=== PATIENT | female | born 2000 | race Caucasian/White ===

== ENCOUNTER → 2018-03-29 16:11 | Outpatient (CLI) | payer OTHER, MEDICAID, SELFPAY | PROVIDERS: PCP Family Medicine; Visit Provider Family Medicine | DX: Z30.09 Encounter for other general counseling and advice on contraception (principal) ==

== ENCOUNTER → 2018-07-26 15:19 | Outpatient (CLI) | payer OTHER, MEDICAID, SELFPAY ==
[2018-07-26 17:16] LABS: TSH w/ Reflex to FT4 6.09 uIU/mL (0.47-4.68)
[2018-07-26 17:41] LABS: Free T4, Direct Thyroxine 0.85 ng/dL (0.78-2.19)
== END ==
PROVIDERS: PCP Family Medicine; Visit Provider Family Medicine
DX: R79.89 Other specified abnormal findings of blood chemistry (principal)
CPT/HCPCS: 36415; 84439; 84443

== ENCOUNTER 2018-11-04 07:38 | Day surgery (SDC) | payer OTHER, MEDICAID, SELFPAY ==
[2018-11-02 11:47] VITALS: BMI 31.1
[2018-11-04] VITALS (10 sets, daily range): BP systolic 86–122; BP diastolic 57–77; PULSE 69–100; RESP 10–15; TEMP 36.7–36.8; O2SAT 91–100; BMI 30.3
[2018-11-04] MEDS: LACTATED RINGERS 1,000 ML 42 ML IV (08:25)
--- NOTE | 2018-11-04 08:57 | PM.PREOP ---
Pre-operative Note Interval Note History & Physical reviewed/Exam performed by Physician: Yes Changes to H&P: No
--- NOTE | 2018-11-04 08:58 | PM.OP.1 ---
Operative Date/Time/Diagnoses Date of procedure: 11/04/18 Time of procedure: 08:58 Pre-op diagnosis: Ingrown right great toenail Post-op diagnosis: same Procedure & Clinicians Procedure: Right great toe medial and lateral partial matrixectomy Same procedure as scheduled: Yes Indications: Painful recurrent ingrown right great toenail. Surgeon: Nabila Rodriguez Click Yes if Unassisted: Yes Anesthesia Type: General Operative Notes Closure Type: not applicable Specimen(s): none sent Estimated Blood Loss (mL): 5 Blood products transfused: none Procedure in detail: Patient was brought to the operating room and placed on the operative table in supine position. Following induction of general anesthesia, local anesthesia was delivered to the right great toe. The foot was prepped and draped in the usual aseptic manner. After check of anesthesia, [place] drain was placed about the right hallux. The hallux nail lateral and medial borders were removed gently. The surrounding skin was protected with triple antibiotic ointment and a series of 4 applications of phenol at 30 sec each were placed in each of the removed areas. Following each the areas were curetted and after the last each was rinsed with alcohol. The annelise tourniquet was removed, a prompt hyperemic response was seen to the toe. The area was cleaned and dressed with triple antibiotic ointment, 4x4s, and gently placed coban. Complications: none Condition: stable Disposition: PACU Plan for aftercare: Following a period of postoperative monitoring, the patient will be discharged home on written and oral postoperative instructions. Tomorrow morning will be her 1st dressing soaked where her bandage will be removed and 5 to follow the instructions as delineated in her postoperative care packet.
[2018-11-04] MEDS: CEFAZOLIN 2 GM/100 ML FROZ.PIGGY IV (09:26)
--- NOTE | 2018-11-04 09:39 | SUR.OPER ---
Supine on padded OR bed, head on pillow, arms secured on padded arm boards at <90 degrees abduction, legs uncrossed, safety belt at thigh, tape over blanket over lower leg, bump under operative leg.
[2018-11-04] MEDS: BUPIVACAINE 0.5% (PF) VIAL 30 ML INJ (10:04)
[2018-11-04] MEDS: NEOMYCIN/POLYMYXIN/BACITRA UD OINT 1 EACH TOP (10:05)
[2018-11-04] MEDS: LIDOCAINE 2% INJ MDV 20 ML INJ (10:05)
[2018-11-04] MEDS: MEPERIDINE 50 MG/ML 25 MG IV (10:13)
--- NOTE | 2018-11-04 10:25 | SUR.PHASEI ---
Pt arrived to PACU with oral airway, chin lift needed for short period, air way out and pt remained on room air, demerol given for shakes after bear hugger ineffective for getting rid of them. Shakes now gone pt awake. with no pain, and eating ice chips. Waiting for 20 min after iv narcotic for transfer.
== END 2018-11-04 11:00 | disposition home or self-care (01) ==
PROVIDERS: PCP Family Medicine; Visit Provider Podiatrist
PROC: 0HTRXZZ Resection of Toe Nail, External Approach (ICD-10-PCS; CPT 11750; principal; 2018-11-04 09:15)
DX: L60.0 Ingrowing nail (principal)
CPT/HCPCS: 11750; J0690; J1100; J2175; J2250; J2405; J2704; J3010

== ENCOUNTER → 2024-05-09 13:43 | Outpatient (CLI) | payer OTHER, SELFPAY ==
--- NOTE | 2024-05-16 13:47 | DIET.OUTPTC ---
Dietary Outpatient Consultation Note Consultation Date: 05/09/2024 Assessment: 24 y F referred to dietitian for PCOS. Pt goes by Shanice. Shanice is wanting to learn more about nutrition r/t PCOS, appropriate macronutrient distribution at meals, and plant-based eating. Is vegan. Has been vegan or vegetarian for many years. Last 1-2 yrs has been vegan, before then was vegetarian for 5 yrs. Notes she has had trouble including enough protein in diet and that meals are volume dense. Wants to start incorporating in daytime meals, but notes she feels sleepy/tired after meals. Has made [place]-based or pea soups and pairs with slices of sourdough bread in the past. Follows recipes by online RD blogger Ellie Littlejohn. 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 Is taking metformin 1,000 mg XR daily. Denies N/V/D/C. Ht: 173 cm Wt: 93.9 kg BMI: 31.37 UBW: - Nutrition Diagnosis: Nutrition related knowledge deficit r/t limited formal nutrition educ on vegan diet aeb assessment Interventions: Discussed the following topics: -Small freq nutrient dense meals/snacks -Consistent CHO, CHO servings/portion sizes and plate method -Vegan protein sources -Macro distributions Goals: implementing small meal (lfeqorz-ivzzo-7-3 CHO serving) at lunch + snack Plan to work towards consistent small freq meals Monitoring/Evaluations: f/u in 6 wks Electronically Signed by: Laurie Peacock 05/16/24 13:47 Clinical Dietitian [address] [id number]
== END ==
LOC: DIET 13:43
PROVIDERS: PCP Registered Nurse; Referring Provider Registered Nurse
DX: E28.2 Polycystic ovarian syndrome (principal); Z71.3 Dietary counseling and surveillance; Z68.31 Body mass index [BMI] 31.0-31.9, adult; Z78.9 Other specified health status
CPT/HCPCS: 97802

== ENCOUNTER → 2024-06-20 13:39 | Outpatient (CLI) | payer OTHER, SELFPAY ==
--- NOTE | 2024-06-22 08:14 | DIET.OUTPTC ---
Dietary Outpatient Consultation Note Consultation Date: 06/20/2024 Assessment: Nutrition f/u for 24 y F referred to dietitian for PCOS. Pt goes by Shanice. Has been eating lunch consistently, but still feels her lunch sources are mostly carbs and fiber. Has been prescribed an increase in her metformin r/t her A1c coming back as 5.7% in most recent labs. Now [id number] mg. Had tried to have increased dose, but had GI distress. This led to a decrease in lunch consumption this past week. She just had the metformin with a yam. Diet recall: B: coffees/teas L: vegetable soup OR mihir and hummus D: tofu, veg, quinoa or potatoes night snacks -varies, sometimes family members buy sweets Denies N/V/D/C. Ht: 173 cm Wt: 93.9 kg BMI: 31.37 UBW: - Nutrition Diagnosis: Nutrition related knowledge deficit r/t limited formal nutrition educ on vegan diet aeb assessment Interventions: Discussed the following topics: -Reviewed protein options she was considering adding to lunches -Reviewed appropriate amounts of CHO to have a meals and snacks for BG control, label reading and hand/object portion sizes to compare to -Provided feedback on online blogger she reads/ gets recipes on - rolly longoria Goals: 30-45 g CHO at lunch w/ tofu or beans included for vegan protein Plan to work towards consistent small freq meals Monitoring/Evaluations: f/u in 6 wks Electronically Signed by: Laurie Peacock 06/22/24 08:14 Clinical Dietitian [address] [id number]
== END ==
PROVIDERS: PCP Registered Nurse; Referring Provider Registered Nurse
DX: E28.2 Polycystic ovarian syndrome (principal); Z71.3 Dietary counseling and surveillance; Z68.31 Body mass index [BMI] 31.0-31.9, adult
CPT/HCPCS: 97803

== ENCOUNTER → 2024-10-19 09:29 | Outpatient (CLI) | payer OTHER, SELFPAY ==
--- NOTE | 2024-10-19 09:31 | DI.US.S_ITS ---
PROCEDURE: US PELVIC COMPLETE INDICATIONS: Fullness of female pelvic organs TECHNIQUE: Real-time scanning was performed of the pelvic organs, with image documentation. Additional endovaginal scanning was necessary due to incomplete visualization of the adnexal and endometrial structures by transabdominal scanning. COMPARISON: None. FINDINGS: Uterus: 6.9 x 4.6 x 3.3 cm. Anteverted positioning. Endometrium measures 3 mm. Nabothian cysts are seen. The largest complicated cyst measures 0.9 cm. Ovaries: Nonenlarged bilaterally, with spectral flows identified. Other: No pathologic free abdominal or pelvic fluid. IMPRESSION: No acute or significant sonographic abnormality in the pelvis. Dictated by: Daljit Bess M.D. on 10/19/2024 at 10:09 Approved by: Daljit Bess M.D. on 10/19/2024 at 10:10
== END ==
PROVIDERS: PCP Family Medicine; Referring Provider Family Medicine; Visit Provider Family Medicine
DX: R19.00 Intra-abdominal and pelvic swelling, mass and lump, unspecified site (principal); N88.8 Other specified noninflammatory disorders of cervix uteri
CPT/HCPCS: 76830; 76856; 93975

== ENCOUNTER → 2024-12-22 11:12 | Outpatient (CLI) | payer OTHER, SELFPAY ==
--- NOTE | 2024-12-22 11:16 | DI.RAD.S_ITS ---
PROCEDURE: XR THORACIC SPINE 3V INDICATIONS: CHRONIC MIDLINE BACK PAIN TECHNIQUE: 3 views of the thoracic spine were acquired. COMPARISON: None. FINDINGS: Bones: No fractures or dislocations. No suspicious bony lesions. 12 pairs of ribs are noted, and appear intact where visualized. Soft tissues: No paravertebral stripe thickening. IMPRESSION: No acute bony abnormality. Dictated by: Mark Steiner M.D. on 12/22/2024 at 14:47 Approved by: Mark Steiner M.D. on 12/22/2024 at 14:47
== END ==
PROVIDERS: PCP Family Medicine; Referring Provider Family Medicine; Visit Provider Family Medicine
DX: M54.6 Pain in thoracic spine (principal); G89.29 Other chronic pain
CPT/HCPCS: 72072

== ENCOUNTER → 2025-03-13 09:27 | Outpatient (CLI) | payer OTHER, SELFPAY ==
--- NOTE | 2025-03-13 09:30 | DI.RAD.S_ITS ---
PROCEDURE: XR FINGER RT MIN 2V INDICATIONS: FINGURE INJURY TECHNIQUE: AP hand, 2 views of the right 4th finger (s) acquired. COMPARISON: None. FINDINGS: Bones: Mildly displaced oblique fracture through the dorsal base of the right 4th distal phalanx appreciated. Fractures intra-articular Joints: The joint spaces are normal in width and alignment without arthritic change. Periarticular osteoporosis is noted. Soft tissues: No soft tissue abnormality. IMPRESSION: Mildly displaced intra-articular oblique fracture dorsal 5th distal phalanx Dictated by: Francisco West M.D. on 03/15/2025 at 12:10 Approved by: Francisco West M.D. on 03/15/2025 at 12:11
== END ==
PROVIDERS: PCP Family Medicine; Referring Provider Family Medicine; Visit Provider Family Medicine
DX: S62.634A Displaced fracture of distal phalanx of right ring finger, initial encounter for closed fracture (principal); S69.91XA Unspecified injury of right wrist, hand and finger(s), initial encounter; X58.XXXA Exposure to other specified factors, initial encounter
CPT/HCPCS: 73140